=== PATIENT | male | born 1950 | race Caucasian/White ===

== ENCOUNTER → 2021-04-16 | Outpatient (CLI) | payer MEDICARE, OTHER ==
--- NOTE | 2021-04-16 14:41 | Diagnostic Imaging Report ---
CT Lung Screening INDICATION:100 pack year smoking history, cessation 11 years ago TECHNIQUE: Noncontrast, low-dose CT imaging performed according to the lung cancer screening protocol. Auto Exposure Controls were utilize during the CT exam to meet ALARA standards for radiation dose reduction. COMPARISON:Baseline FINDINGS:The lungs are mildly hyperexpanded and there is symmetric fashion with some parenchymal heterogeneity likely owing to a component of centrilobular emphysema. There is however no lung mass or suspicious pulmonary nodule. No findings of active lung cancer or metastatic disease. There is no pleural or pericardial effusion. The thoracic aorta is normal in caliber. There is coronary artery atherosclerotic vascular calcifications. There is no evidence for lymphadenopathy. No acute chest wall abnormality. The visualized upper abdomen was nonacute. IMPRESSION:No mass or evidence for lung cancer. Continued low-dose CT screening follow-up in one year's time recommended LUNG-RADS CATEGORY:Category 1 MODIFIER:None OTHER SIGNIFICANT FINDINGS:Coronary artery atherosclerotic vascular calcifications. Dictated by: Dictated on workstation # [id number]
== END ==
LOC: RAD 13:45
PROVIDERS: ATTEND Family Medicine
DX: Z12.2 Encounter for screening for malignant neoplasm of respiratory organs (principal); Z87.891 Personal history of nicotine dependence
CPT/HCPCS: 71271